=== PATIENT | female | born 1990 | race Caucasian/White ===

== ENCOUNTER 2017-03-14 06:37 | Inpatient (IN) ==
--- NOTE | 2017-03-14 07:01 | Anesthesia Evaluation PreOp ---
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's) Anesthesia History: No Prior Anesthetic Complications, Past Anesthesia Test: Negative (03/07/2017) Alcohol Use: occasionally Drug use: none Medications and Allergies Ibuprofen [Motrin] 600 mg PO Q6HR PRN #60 tab 01/17/17 [Rx] Allergies acetaminophen [From Darvocet-N 100] Adverse Reaction (Verified 01/17/17 07:27) Agitated Cyclobenzaprine [From Flexeril] Adverse Reaction (Verified 01/17/17 07:27) Vomiting Hydromorphone [From Dilaudid] Adverse Reaction (Verified 01/17/17 07:27) Back Pain metoclopramide [From Reglan] Adverse Reaction (Verified 01/17/17 07:27) Vomiting promethazine [From Phenergan] Adverse Reaction (Verified 01/17/17 07:27) Vomiting propoxyphene [From Darvocet-N 100] Adverse Reaction (Verified 01/17/17 07:27) Agitated - Meds/Allergy Pre-op Review Medications Reviewed: Yes Allergies Reviewed: Yes Beta Blockers on Current Med List: No Anesthesia Results - Labs Laboratory Tests 03/07/17 03/07/17 03/07/17 10:50 10:50 10:50 WBC 6.7 Hgb 13.5 Hct 40.8 Plt Count 156 BUN 11 Creatinine 0.72 Serum , Qual Negative Anesthesia Exam O2 Sat Height 1.7 m Height 1.7 m Weight 110.223 kg Weight 110.223 kg O2 Sat by Pulse Oximetry 95 Vital Signs Temp Pulse Resp BP Pulse Ox 98.1 F 66 18 101/60 95 03/14/17 06:53 03/14/17 06:53 03/14/17 06:53 03/14/17 06:53 03/14/17 06:53 Height: 5'7'' Weight: 243 lbs NPO (# of Hours): 8 Pain Scale: 0 Pain Scale Used: Numeric (1 - 10) - HEENT Pupil (Motor): EOMI Mallampati: III Teeth: Normal Oral Opening: Greater than 3 - DELIVERY AGENT LOC: Oriented DELIVERY AGENT Motor: Normal RUE, Normal LUE, Normal RLE, Normal LLE, Normal Face DELIVERY AGENT Sensory: Normal: RUE, LUE, RLE, LLE, Face - Cardiac Rhythm: Regular Murmur: None - Pulmonary Breath Sounds: bilateral Clear Respiratory Effort: Symmetrical Anesthesia Assess/Plan ASA Score: 2 Modified Claudette Scale for Level of Consciousness: Cooperative, oriented, and tranquil Anesthetic Plan: General Monitoring Plan: Standard Monitors Recovery Plan: PACU
[2017-03-14] MEDS ORDERED: Lidocaine -MPF 4% 5 ML AMPUL ONE (07:05)
[2017-03-14] MEDS ORDERED: Ondansetron 4 MG/2 ML VIAL ONE (07:05)
[2017-03-14] MEDS ORDERED: *HR* Phenylephrine 10 MG/ML VIAL ONE (07:05)
[2017-03-14] MEDS ORDERED: Lidocaine -MPF 2% 2 ML VIAL ONE (07:05)
[2017-03-14] MEDS ORDERED: Dexamethasone 4 MG/ML VIAL ONE (07:05)
[2017-03-14] MEDS ORDERED: *HR* Rocuronium Bromide 50 MG/5 ML VIAL ONE ×2 (07:05→09:14)
[2017-03-14] MEDS ORDERED: *HR* Succinylcholine 200 MG/10 ML VIAL IVP ONE (07:05)
[2017-03-14] MEDS ORDERED: *HR* Midazolam HCl 2 MG/2 ML VIAL ONE (07:06)
[2017-03-14] MEDS ORDERED: EPHEDrine 50 MG/ML VIAL ONE (07:06)
[2017-03-14] MEDS ORDERED: *HR* Propofol 200 MG/20 ML VIAL IVP ONE ×2 (07:06→07:55)
[2017-03-14] MEDS ORDERED: *HR* FentaNYL (PF) 100 MCG/2 ML VIAL ONE ×3 (07:06→10:32)
[2017-03-14] MEDS ORDERED: Albuterol 2.5 MG/3 ML NEBULIZER IH ONE (07:16)
[2017-03-14] MEDS ORDERED: CeFAZolin Pre 2,000 MG/100 ML 2,000 MG/100 ML BAG IVPB ONE (07:23)
--- NOTE | 2017-03-14 07:25 | History & Physical Report ---
Date of Encounter: 03/14/17 Time of Encounter: 07:24 24 Hour HP Update - Instructions Instructions: If the History and Physical is less than 30 days old and was completed prior to A.M. admission and or procedure and has NOT been updated on calendar day of procedure please complete this update prior to performing procedure. - Update Patient reports changes in Medical Condition: No Changes in examination, assessment, or condition: No Changes in Medication: No Preop tests/diagnostics Reviewed: Yes Surgery Remains Indicated: Yes Consent for Planned Operative Procedure(s) Verified: Yes - Pre-Operative Checklist Preoperative Checklist Indicated: Yes Prophylactic Antibiotic Ordered: Yes Home Medications Include Beta Kelly: No Beta Kelly Taken Today (Day of Surgery): No Beta Kelly Taken Yesterday (Day Prior to Surgery): No Is VTE Prophylaxis Indicated?: Yes
[2017-03-14] MEDS ORDERED: Albuterol 2.5 MG/3 ML NEBULIZER ONE (07:33)
[2017-03-14] MEDS: Ringers Solution, Lactated 1,000 ML IVC SCH ×3 (07:35→23:08)
[2017-03-14] MEDS ORDERED: *HR* Morphine 2 MG/ML SYRINGE IVP PRN (08:36)
[2017-03-14] MEDS ORDERED: *HR* Labetalol 100 MG/20 ML MDV IVP PRN (08:36)
[2017-03-14] MEDS ORDERED: Ondansetron 4 MG/2 ML VIAL IVP ONE (08:36)
[2017-03-14] MEDS ORDERED: Ringers Solution, Lactated 1,000 ML IVC SCH (08:45)
[2017-03-14] MEDS ORDERED: Neostigmine Methylsulfate 3 MG/3 ML SYRINGE ONE (10:17)
[2017-03-14] MEDS ORDERED: Ketorolac 30 MG/ML VIAL ONE (10:18)
[2017-03-14] MEDS ORDERED: *HR* Morphine 10 MG/ML VIAL ONE (10:19)
--- NOTE | 2017-03-14 10:41 | OB/GYN Procedure Note ---
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 - Diagnosis Date of procedure: 03/14/17 Pre-op diagnosis: AUB, severe cramps s/p failed ablation, s/p BTL s/p 3 C/ Sections Post-op diagnosis: same - Procedure Procedure: MERLE, cystoscopy Surgeon: Fernando Santiago [employer] Operations Duty Manager: Lesly Medeiros Anesthesia Type: General Estimated blood loss (cc): 350 Fluids: crystalloid Procedure Complications: none Specimens collected: uterus, cervix(partial tissue), tubes Disposition: floor Findings: severe adhesions connecting anterior uterine wall and cervix to bladder Narrative: The patient was placed in the dorsal supine position after an adequate level of general anesthesia was obtained and after appropriate informed consent had been obtained. The Vargas was draining clear urine from the bladder. After the patient was prepped and draped in the usual sterile manner, a Pfannenstiel incision was made at the level of her previous scar. Subcutaneous tissue was incised until the level of the rectus fascia was reached. A selene was made in the fascia. This was extended the length of the incision using Arias scissors. There was dense scar tissue communicating with the recti muscles but we were able to separate the muscles and get adequate entry into the abdomen. We explored the abdomen. The bowels grossly appeared normal. The uterus was noted to be severely adherent to the bladder. The ovaries and tubes were examined and found to be normal. The Aaliyah Lloyd retractor was set up before the hysterectomy was started. The right round ligament was clamped with the Ligasure device, clamped and cut. The anterior leaf of the broad ligament was cut using Metzenbaum scissors. The bladder that was adherent to the anterior aspect of the uterus was gently dissected using sharp and blunt dissection and it was gently pushed down with the sponge on a stick. Two fingers were inserted through the posterior leaf of the right broad ligament. The tissue was grasped with the Ligasure, clamped and cut to free the ovaries as well as amputate the tubes. The right uterine artery was then skeletonized, clamped at the level of the cervical os using the Ligasure device and cut. Similar procedure was done on the opposite side. By the time we got down to the cervix, we saw that the bladder was still adherent and we could see the vargas balloon bulging through the bladder tissue, very close to where we would be amputating the cervix. We confirmed closeness of the bladder after we retrograde-filled the bladder with fluid. In other to avoid bladder injury, we took out most of the cervix we could remove safely but after I did a vaginal exam, I could still feel some small piece of cervix and I could still also feel the vargas again close to the cuff. I changed gloves and gown before proceeding to the abdomen. We decided to amputate the uterus and most of the cervix at this point. This we did by placing 2 curved heaneys tip to tip together beneath the cervix, using curved scissors to amputate the uterus and part of the cervix. O-Vicryl suture was then used to approximate the cuff and the small piece of cervix left. Bleeding points were suture ligated until adequate hemsostasis was achieved. A cystoscopy was done which showed excellent flow through each ureteral orifice and the bladder was thoroughly inspected to make sure there was no stitch through the bladder. I changed gloves and gown and proceeded to finish up the case after the cystoscopy. The retractor was taken out from the abdomen as well as the laps sponges. The recti muscles were reapproximated with 3-0 vicryl, the fascia was reapproximated with 0-vicryl, the subcutaneous tissue was reapproximated with 3- 0 vicryl. The skin was closed with dickson. The patient tolerated the procedure well and was transferred to the floor.
[2017-03-14] MEDS ORDERED: Acetaminophen IV 1,000 MG/100 ML INFUS..BTL IVPB ONE (11:08)
[2017-03-14] MEDS ORDERED: Naloxone 0.4 MG/ML INJ IVP PRN (11:19)
[2017-03-14] MEDS ORDERED: Ibuprofen 600 MG TABLET PO PRN (11:20)
[2017-03-14] MEDS ORDERED: *HR* HYDROcodone/Acet 5/325 mg TABLET PO PRN (11:21)
--- NOTE | 2017-03-14 11:34 | Anesthesia Evaluation Post Op ---
Date of Encounter: 03/14/17 Time of Encounter: 11:33 - Vital Signs Vital Signs: Vital Signs/O2 Sat, Most Current Temp Pulse Resp BP Pulse Ox 97.7 F 76 16 128/85 100 03/14/17 11:20 03/14/17 11:20 03/14/17 11:20 03/14/17 11:20 03/14/17 11:20 - Lungs Lungs: Clear Ascult./Percussion - Airway Airway: Non-obstructed - Cardiovascular Regular Rate - Mental Status Mental Status: Alert & Oriented, Answers Appropriately - Pain Pain Scale: 5 Pain Scale used: Numeric (1 - 10) - Nausea Vomiting Nausea Vomiting: Not Present - Hydration Hydration: Ice chips, Avila catheter - Discharge PostOp Status: Transfer Patient to floor
[2017-03-14] MEDS ORDERED: Ketorolac 30 MG/ML VIAL IVP ONE (18:08)
[2017-03-14] MEDS: *HR* HYDROcodone/Acet 10/325 mg TABLET PO PRN (20:46)
[2017-03-14] MEDS: *HR* OxyCODONE Immed Rel 5 MG TABLET PO PRN (23:09)
[2017-03-15] MEDS: *HR* HYDROcodone/Acet 10/325 mg TABLET PO PRN ×2 (02:53→10:10)
[2017-03-15 06:03] LABS: Basophils % 0.4 %; Eosinophils % 0.5 %; Hematocrit 29.2 % (35.3-44.9); Hemoglobin 9.9 g/dL (11.5-15.4); Immature Granulocytes % 0.5 % (0-4); Lymphocytes # 1.2 K/mcL (0.6-4.6); Mean Corpuscular HGB Conc 33.9 g/dL (31.6-35.5); Mean Corpuscular Hemoglobin 29.7 pg (28.0-33.3); Mean Corpuscular Volume 87.7 fL (83.0-100.0); Mean Platelet Volume 11.2 fL (9.4-12.4); Monocytes # 0.4 K/mcL (0.0-1.3); Monocytes % 7.3 %; Neutrophils # 3.9 K/mcL (1.6-8.9); Platelet Count 122 K/mcL (140-400); Red Blood Count 3.33 M/mcL (3.82-4.97); Red Cell Distribution Width 13.2 % (11.5-14.5); Segmented Neutrophils % 70.3 %
[2017-03-15] MEDS: *HR* OxyCODONE Immed Rel 5 MG TABLET PO PRN ×2 (06:08→07:40)
[2017-03-15 08:12] VITALS: BP 122/77
--- NOTE | 2017-03-15 11:56 | Discharge Summary ---
Date of Encounter: 03/15/17 Time of Encounter: 11:56 - Discharge Diagnosis (1) Status post abdominal supracervical subtotal hysterectomy Priority: Primary Status: Acute Comments: patient doing very well, ambulating, tolerating PO intake, good urination, pain under control, wants to go home today, scripts for Percocet, Colace and Motrin given, ok for discharge - Discharge Medications Prescriptions: Ibuprofen [Motrin] 600 mg PO Q6HR PRN #60 tab PRN Reason: Pain Docusate [Colace] 100 mg PO BID #60 capsule Oxycodone HCl/Acetaminophen [Percocet 5-325 mg Tablet] 1 each PO Q4-6H PRN #60 tablet PRN Reason: Severe Pain Home Medications: Docusate [Colace] 100 mg PO BID #60 capsule 03/15/17 [Rx] Ibuprofen [Motrin] 600 mg PO Q6HR PRN #60 tab 03/15/17 [Rx] Oxycodone HCl/Acetaminophen [Percocet 5-325 mg Tablet] 1 each PO Q4-6H PRN #60 tablet 03/15/17 [Rx] Allergies/Adverse Reactions: Allergies acetaminophen [From Darvocet-N 100] Adverse Reaction (Verified 03/14/17 07:16) Agitated Cyclobenzaprine [From Flexeril] Adverse Reaction (Verified 03/14/17 07:16) Vomiting Hydromorphone [From Dilaudid] Adverse Reaction (Verified 03/14/17 07:16) Back Pain metoclopramide [From Reglan] Adverse Reaction (Verified 03/14/17 07:16) Vomiting promethazine [From Phenergan] Adverse Reaction (Verified 03/14/17 07:16) Vomiting propoxyphene [From Darvocet-N 100] Adverse Reaction (Verified 03/14/17 07:16) Agitated Data Procedures and tests throughout hospitalization: Laboratory Tests 03/15/17 05:52 WBC 5.6 RBC 3.33 L Hgb 9.9 L Hct 29.2 L MCV 87.7 MCH 29.7 MCHC 33.9 RDW 13.2 Plt Count 122 L MPV 11.2 Immature Gran % 0.5 Seg Neutrophils % 70.3 Lymphocytes % 21.0 Monocytes % 7.3 Eosinophils % 0.5 Basophils % 0.4 Neutrophils # 3.9 Lymphocytes # 1.2 Monocytes # 0.4 Eosinophils # 0.0 Basophils # 0.0 Labs on day of discharge: Labs from last 24 hours 03/15/17 05:52 WBC 5.6 RBC 3.33 L Hgb 9.9 L Hct 29.2 L MCV 87.7 MCH 29.7 MCHC 33.9 RDW 13.2 Plt Count 122 L MPV 11.2 Immature Gran % 0.5 Seg Neutrophils % 70.3 Lymphocytes % 21.0 Monocytes % 7.3 Eosinophils % 0.5 Basophils % 0.4 Neutrophils # 3.9 Lymphocytes # 1.2 Monocytes # 0.4 Eosinophils # 0.0 Basophils # 0.0 Date of admission: 03/14/17 12:05 Primary care physician: PCP NO - Patient Status Disposition: Home, Self-Care Condition: Good Functional capacity at discharge: independent ambulation Overall status at discharge: patient is progressing back to baseline - Discharge Instructions Instructions: Abdominal Hysterectomy (DC) Follow Up With: Fernando Santiago MD [Partnered Physician] - NO,PCP [Primary Care Provider] - Additional Instructions: You have had a surgery called a hysterectomy. This is an incision made in your abdomen to remove your uterus, tubes, ovaries or all of these. If your fallopian tubes and ovaries were removed, you may need to talk hormone replacement medications. Your doctor will discuss this with you. If your tubes and ovaries were not removed, you can expect to have menopause (change of life) at the normal time. This is usually between the age of 40 and 50. MEDICATIONS: -Continue taking your home medications as prescribed by your doctor prior to surgery. You will be notified of any changes in home medications before leaving the hospital. -A prescription for pain medication may be given to you. Take it as directed. It is important to control your pain during recovery. BOWEL MOVEMENTS: -You may not have a bowel movement for a few days after surgery. The first one may be difficult to pass. Do not strain in order to go, and allow yourself plenty of time when going for the first time following your surgery. -To help soften your stool, eat a diet high in fiber. This includes foods such as cereals, whole grain breads and vegetables. You can also take a fiber supplement or stool softeners, which your provider may prescribe for you. DIET: -Your appetite may be decreased following surgery. You will be eating regular food before you are discharged from the hospital. Start out with small amounts of food and increase your meals as you are able to tolerate them without feeling nauseated. -Eat healthy foods to help you heal more quickly and increase your energy. Avoid foods that cause gas, as this will make you feel uncomfortable. -Drink 6-8 glasses of water each day. SMOKING: -Smoking increases your chances of post-surgical complications. It is never too late to quit. Ask your nurse or provider for information to help you quit smoking. ACTIVITY: -Restrict yourself to light activity and increase your activity level slowly, resting frequently. -Be aware your pain medication may cause drowsiness. -It usually takes 4-8 weeks for the body to heal. -You may walk slowly. Limit stair climbing. Do not exercise until the provider tells you it is safe to do so. -No douching, tampons or sex for 6 weeks. This will allow time for healing. You can no longer get after having a hysterectomy but will still need to protect yourself from sexually transmitted diseases. -Lift nothing heavier than 10-15 pounds for 2 weeks. -You can drive in about 2 weeks, unless otherwise instructed by your provider. -You can expect to return to work or school and other normal activities in about 6 weeks or as directed by your provider. BATHING: -You can bathe or shower in 2 days. Wash the area of your incision with soap and water. You may have steri-strips (thin strips of tape to hold the incision together while it heals). Keep these clean and dry. Do not pull them off, they will fall off. STRESS AND MOOD -A hysterectomy may change the way that you view yourself. These are normal feelings. Talk to your family and health care provider about these feelings. If you feel depressed, seek counseling or talk to your provider about treatment options. It is important in the healing process to have a healthy mind. WHEN TO CALL THE DOCTOR: -If your stitches are swollen, red or have drainage coming from them or if you notice them coming apart. It is normal for your incision to feel numb up to a year. -If you are having chills, fever or a reaction to your medicine. -If your incision is bleeding or you have increased pain in your incision. -If within an hour you have soaked a sanitary pad with vaginal bleeding. -If you are unable to urinate or it has been 4-6 hours since you have urinated. Also, if you have burning with urination or feel like you cant completely empty your bladder; call your provider for further instructions. -If you have a smelly discharge coming from your incision or vagina. -If you have any questions about your surgery or medications. If you have difficulty breathing, chest pain, uncontrolled bleeding or any other emergency, call 911 or report to the nearest emergency department immediately. 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
== END 2017-03-15 11:45 | disposition home or self-care (01) | DRG 743 ==
LOC: SAMDAY 06:37 → 1NENUOBS 12:05
PROVIDERS: ADMIT Student in an Organized Health Care Education/Training Program; ATTEND Student in an Organized Health Care Education/Training Program